=== PATIENT | female | born 1990 | race American Indian/Alaskan Native ===

== ENCOUNTER 2017-01-19 09:10 | Day surgery (SDC) | payer MEDICAID ==
[~2017-01-19 09:10] MED LIST: ANCEF/STERILE WATER 2 GM/20 ML IV NR
--- NOTE | 2017-01-19 12:48 | Anesthesia Day of Surgery ---
Anesthesia Day of Surgery - Day of Surgery Patient Examined: Yes Patient H&P Reviewed: Yes Patient is NPO: Yes
--- NOTE | 2017-01-19 12:48 | Anesthesia Consultation ---
Anesthesia Consult and Med Hx Date of service: 01/19/17 - Airway Anesthetic Teeth Evaluation: Good ROM Head & Neck: Adequate Mental/Hyoid Distance: Adequate Mallampati Class: Class II Intubation Access Assessment: Good - Pulmonary Exam CTA: Yes - Cardiac Exam Cardiac Exam: No Murmur - Pre-Operative Health Status ASA Pre-Surgery Classification: ASA2 Proposed Anesthetic Plan: General - Pulmonary Hx Smoking: Yes (STOPPED 04/2016,1/2PPD X 4 YRS) Hx Sleep Apnea: No (MANSI PRE SCREEN NEGATIVE) - Cardiovascular System Hx Hypertension: No - Other Systems Hx Cancer: No
[2017-01-19] MEDS ORDERED: VERSED IV NR (13:00)
[2017-01-19] MEDS ORDERED: LACTATED RINGERS 1,000 ML IV SCH (13:00)
[2017-01-19] MEDS ORDERED: XYLOCAINE MPF 2% ONE (14:49)
[2017-01-19] MEDS ORDERED: SUBLIMAZE ONE (14:49)
[2017-01-19] MEDS ORDERED: DIPRIVAN 10 MG/ML IV ONE (14:49)
[2017-01-19] MEDS ORDERED: ZOFRAN ONE (15:32)
[2017-01-19] MEDS ORDERED: WATER FOR IRRIG STERILE IR ONE (15:48)
--- NOTE | 2017-01-19 16:02 | Short Stay Summary ---
Short Stay Documentation Date of service: 01/19/17 - History H&P: obtained from office - Allergies and Medications Current Medications: Allergies No Known Allergies Allergy (Verified 01/12/17 14:15) Home Medications Medication Instructions Recorded Confirmed Last Taken Type HYDROcodone/ACETAMINOPHEN [[place] 1 each PO PRN PRN 01/12/17 01/19/17 01/18/17 History 5-325 Tablet] Sulfamethoxazole/Trimethoprim 1 each PO BID 01/12/17 01/19/17 01/18/17 History [Bactrim DS TAB] Tamsulosin [Flomax] 0.4 mg PO QDAY 01/12/17 01/19/17 01/18/17 History oxyCODONE /ACETAMINOPHEN [Percocet 1 tab PO PRN PRN 01/12/17 01/12/17 Unknown History 5/325 mg] traMADol [Ultram] 50 mg PO Q6HR PRN 01/12/17 01/19/17 01/18/17 History Active Medications Cefazolin Sodium (Ancef/Sterile Water 2 Gm/20 Ml) 2 gm IV PREOP NR Stop: 01/19/17 23:59 Lactated Ringer's (Lactated Ringers) 1,000 mls @ 100 mls/hr IV DIRECT ALEXANDRA Last Admin: 01/19/17 14:20 Dose: 100 mls/hr Midazolam HCl (Versed) 2 mg IV PREOP NR Stop: 01/19/17 23:59 Last Admin: 01/19/17 14:25 Dose: 2 mg - Brief post op/procedure progress note Date of procedure: 01/19/17 Pre-op diagnosis: rt distal stone, rt renal stone Post-op diagnosis: other (RT DISTAL STONE X 2) Procedure: CYSTO, RPG, BALLOON URETER, RT URETEROSCOPY BASKET STONE X 2, STENT WITH EXTERNAL STRING CIPRO, PERCOCET, STONE,POST OP INFO ON CHART Anesthesia: GETA Surgeon: VARSHA BOATENG Estimated blood loss: none Condition: stable - Hospital course Hospital course: CIPRO, PERCOCET, STONE,POST OP INFO ON CHART - Disposition Condition at discharge: Stable Disposition: [id number] TO HOME OR SELFCARE
[2017-01-19] MEDS: DILAUDID IV PRN ×2 (16:50→17:00)
--- NOTE | 2017-01-19 16:54 | Operative Report ---
PREOPERATIVE DIAGNOSES: Right distal ureteral stone, right renal stone. POSTOPERATIVE DIAGNOSES: Right ureteral stone, pleural stones. SECONDARY DIAGNOSES: Right ureteral stone, pleural stones. PROCEDURES: Cystoscopy, right retrograde pyelogram, right balloon dilatation of ureter, rigid ureteroscopy, basket stone extraction of 2 stones. SURGEON: Jarrod Yancey M.D. ANESTHESIA: General. ESTIMATED BLOOD LOSS: Minimal. FLUIDS: Crystalloid. COMPLICATIONS: No complications. INDICATIONS: This patient is a 26-year-old female who presented to the Emergency Room for right flank pain. CT abdomen and pelvis revealed a 9 mm distal stone, also a 4 mm right renal stone, and a punctate, very small left renal stone. We discussed the options. She agreed to proceed with surgical intervention. We also consented for possible extracorporeal shock wave lithotripsy. DESCRIPTION OF PROCEDURE: The patient was taken to the operative suite and placed in the supine position. After adequate general anesthesia, she was placed in a dorsal lithotomy position and prepped and draped in a sterile fashion. Pancystourethroscopy was performed with a 22-[place] Storz cystoscope. No urethral abnormalities. The bladder with no tumors or stones were noted. Right retrograde pyelogram was obtained with an 8-[place] Antonino catheter and 8 mL of contrast. Two filling defects in the distal ureter, which now looks like the right renal stone is now down in the distal ureter as well. Two 0.035 Glidewires were placed. Balloon dilatation of the distal ureter using an 18 mm x 4 cm dilator. Rigid ureteroscopy was performed. Two stones could be appreciated. They were engaged and it was able to be pulled with a 3-[place] Avis basket. Ureteroscopy up to the renal pelvis, no other stones could be appreciated. Fluoroscopy on the left side did not see any stones. A 6 [place] 24 cm double-J stent with an external string was left indwelling. Fluoroscopy confirmed adequate position. She was extubated and taken to recovery room in stable condition. She will go home on Cipro and Percocet. JOB# [id number] [facility]
[2017-01-19] MEDS ORDERED: DILAUDID ONE (16:55)
[2017-01-19] MEDS ORDERED: PERCOCET 5/325 PO ONE (17:32)
[2017-01-19 17:49] VITALS: BP 120/75
== END 2017-01-19 17:42 | disposition home or self-care (01) ==
LOC: OR 09:10
PROVIDERS: ATTEND Urology
DX: N20.2 Calculus of kidney with calculus of ureter (principal); Z79.899 Other long term (current) drug therapy; Z87.891 Personal history of nicotine dependence
CPT/HCPCS: 52332; 52344; 52352; 81025; A4217; C1726; C1758; C1769; C2617; J0690; J1170; J2250; J2405; J2704; J3010; J7120; Q9967